=== PATIENT | male | born 1960 | race African-American/Black ===

== ENCOUNTER 2023-01-12 15:50 | Inpatient (IN) | payer OTHER ==
[2023-01-12 17:03] VITALS: BMI 27.3
[2023-01-12] MEDS ORDERED: BENZOCAINE/MENTHOL (CHLORASEPTIC ) LOZENGE MM PRN (18:18)
[2023-01-12] MEDS ORDERED: guaiFENesin 600 MG TABLET.ER (FP) PO PRN (18:18)
[2023-01-12] MEDS ORDERED: BISMUTH SUBSALICYLATE 524 MG/30 ML PO PRN (18:18)
[2023-01-12] MEDS ORDERED: NALOXONE HCL (KLOXXADO) 8 MG SPRAY NS PRN (18:18)
[2023-01-12] MEDS ORDERED: MAGNESIUM HYDROX 2400MG/30ML ORAL SUSPENSION 30 ML CUP PO PRN (18:18)
[2023-01-12] MEDS ORDERED: hydrOXYzine PAMOATE 25 MG CAPSULE (FP) PO PRN (18:18)
[2023-01-12] MEDS ORDERED: LOPERAMIDE HCL 2 MG CAPSULE PO PRN (18:18)
[2023-01-12] MEDS ORDERED: ONDANSETRON *ODT* 4 MG TABLET SL PRN (18:18)
[2023-01-12] MEDS ORDERED: NALOXONE HCL 0.4 MG/ML VIAL IM PRN (18:18)
[2023-01-12] MEDS ORDERED: IBUPROFEN 600 MG TABLET (FP) PO PRN (18:18)
[2023-01-12] MEDS ORDERED: METHOCARBAMOL 500 MG TABLET PO PRN (18:18)
[2023-01-12] MEDS ORDERED: MAG HYDROX/AL HYDROX/SIMETH 30 ML UNIT-DOSE CUP PO PRN (18:18)
[2023-01-12] MEDS ORDERED: BENZONATATE 200 MG CAPSULE PO PRN (18:18)
[2023-01-12] MEDS ORDERED: DICYCLOMINE HCL 10 MG CAPSULE PO PRN (18:18)
[2023-01-12] MEDS ORDERED: POLYETHYLENE GLYCOL (HEALTHYLAX) 3350 17 GM PACKET PO PRN (18:18)
[2023-01-12] MEDS ORDERED: P-EPHED 60MG/TRIPROLIDI 2.5MG TABLET PO PRN (18:18)
[2023-01-12] MEDS ORDERED: IBUPROFEN 400 MG TABLET (FP) PO PRN (18:18)
[2023-01-12] MEDS ORDERED: ACETAMINOPHEN 325 MG TABLET (FP) PO PRN (18:18)
[2023-01-12] MEDS ORDERED: TUBERCULIN PPD 5 TU/0.1ML VIAL ID ONE (19:22)
[2023-01-12] MEDS: THIAMINE HCL 100 MG TABLET (FP) PO SCH (22:09)
[2023-01-12] MEDS: DIVALPROEX SODIUM 500 MG TABLET E.C. PO SCH (22:09)
[2023-01-12] MEDS: BACITRACIN 0.9 GM PACKET TP SCH (22:09)
[2023-01-12] MEDS: MELATONIN 5 MG TABLETS PO PRN (22:09)
[2023-01-12] MEDS: CLINDAMYCIN HCL 150 MG CAPSULE (FP) PO SCH (23:23)
[2023-01-13] MEDS: CLINDAMYCIN HCL 150 MG CAPSULE (FP) PO SCH ×3 (05:44→17:38)
[2023-01-13] MEDS ORDERED: cloNIDine HCL 0.1 MG TABLET PO PRN (08:42)
[2023-01-13] MEDS ORDERED: methaDONE HCL 10 MG TABLET (FOR DETOX USE ONLY) PO ONE ×2 (08:42→10:00)
[2023-01-13] MEDS ORDERED: diazePAM 5 MG TABLET PO PRN (08:44)
[2023-01-13] MEDS: TAMSULOSIN HCL 0.4 MG CAP PO SCH (08:53)
[2023-01-13] MEDS: BACITRACIN 0.9 GM PACKET TP SCH ×2 (10:19→22:38)
[2023-01-13] MEDS: NIFEdipine E.R. 30 MG TABLET PO SCH (10:19)
[2023-01-13] MEDS: LOSARTAN POTASSIUM 50 MG TABLET PO SCH (10:20)
[2023-01-13] MEDS: DIVALPROEX SODIUM 500 MG TABLET E.C. PO SCH ×2 (10:20→22:39)
[2023-01-13] MEDS: PRENATAL VITAMINS W/ FOLIC ACID TABLET (FP) PO SCH (10:23)
[2023-01-13 12:55] LABS: POTASSIUM 5.2 mmol/L (3.5-5.1)
[2023-01-13 13:02] LABS: ALBUMIN 2.4 g/dl (3.4-5.0)
[2023-01-13 13:03] LABS: BLOOD UREA NITROGEN 34.8 mg/dL (7-18)
[2023-01-13 13:04] LABS: CREATININE 2.1 mg/dL (0.55-1.3)
[2023-01-13 13:06] LABS: BILIRUBIN,TOTAL 0.2 mg/dL (0.2-1)
[2023-01-13 13:15] LABS: HEMATOCRIT 27.4 % (35.4-49); HEMOGLOBIN 9.4 GM/dL (11.7-16.9); MCH 30.7 pg (25.7-33.7); MCHC 34.3 g/dl (32.0-35.9); MEAN CELL VOLUME 89.5 fl (80-96); PLATELET COUNT 193 10^3/uL (134-434); RBC 3.06 M/mm3 (4.00-5.60); RDW 13.1 % (11.9-15.9); WHITE BLOOD COUNT 4.7 K/mm3 (4.0-10.0)
[2023-01-13] MEDS ORDERED: traZODone HCL 50 MG TABLET (FP) PO SCH (22:00)
[2023-01-13] MEDS: MELATONIN 5 MG TABLETS PO PRN (22:39)
[2023-01-13] MEDS: THIAMINE HCL 100 MG TABLET (FP) PO SCH (22:39)
[2023-01-14] MEDS: CLINDAMYCIN HCL 150 MG CAPSULE (FP) PO SCH ×3 (00:06→12:31)
[2023-01-14] MEDS: LOSARTAN POTASSIUM 50 MG TABLET PO SCH (09:11)
[2023-01-14] MEDS: TAMSULOSIN HCL 0.4 MG CAP PO SCH (09:11)
[2023-01-14] MEDS: NIFEdipine E.R. 30 MG TABLET PO SCH (09:11)
[2023-01-14] MEDS: DIVALPROEX SODIUM 500 MG TABLET E.C. PO SCH (09:11)
[2023-01-14] MEDS: BACITRACIN 0.9 GM PACKET TP SCH (09:11)
[2023-01-14] MEDS: PRENATAL VITAMINS W/ FOLIC ACID TABLET (FP) PO SCH (09:12)
[2023-01-14 11:04] LABS: POTASSIUM 5.6 mmol/L (3.5-5.1)
[2023-01-14 11:08] LABS: HEMATOCRIT 31.6 % (35.4-49); HEMOGLOBIN 10.9 GM/dL (11.7-16.9); MCH 30.2 pg (25.7-33.7); MCHC 34.4 g/dl (32.0-35.9); MEAN CELL VOLUME 87.7 fl (80-96); MEAN PLT VOLUME 8.1 fl (7.5-11.1); PLATELET COUNT 241 10^3/uL (134-434); WHITE BLOOD COUNT 6.4 K/mm3 (4.0-10.0)
[2023-01-14 11:11] LABS: ALBUMIN 2.7 g/dl (3.4-5.0); BLOOD UREA NITROGEN 31.6 mg/dL (7-18); CALCIUM 8.8 mg/dL (8.5-10.1); MAGNESIUM 2.3 mg/dL (1.8-2.4)
[2023-01-14 11:14] LABS: CREATININE 1.7 mg/dL (0.55-1.3)
[2023-01-14] MEDS ORDERED: SODIUM ZIRCONIUM CYCLOSILICATE (LOKELMA) 10 GM PACKET PO SCH (11:15)
[2023-01-14 11:16] LABS: BILIRUBIN,TOTAL 0.7 mg/dL (0.2-1); TOT PROT 6.8 g/dl (6.4-8.2)
[2023-01-14 13:06] VITALS: BP 145/106; PULSE 79; RESP 16; TEMP 97.3
[2023-01-14] MEDS ORDERED: hydrALAZINE HCL 10 MG TABLET PO SCH (14:00)
[2023-01-15] MEDS ORDERED: NIFEdipine E.R. 90 MG TABLET PO SCH (10:00)
[2023-01-15] MEDS ORDERED: LOSARTAN POTASSIUM 50 MG TABLET PO SCH (10:00)
[2023-01-15] MEDS ORDERED: methaDONE HCL 10 MG TABLET (FOR DETOX USE ONLY) PO ONE (10:00)
[2023-01-17] MEDS ORDERED: methaDONE HCL 10 MG TABLET (FOR DETOX USE ONLY) PO ONE (10:00)
== END 2023-01-14 14:19 | disposition left against medical advice (07) | DRG 894 ==
LOC: YASAS 15:50 → Y3N 18:53
PROVIDERS: ADMIT Allergy & Immunology; ATTEND Surgery
PROC: HZ2ZZZZ Detoxification Services for Substance Abuse Treatment (ICD-10-PCS; principal; 2023-01-12)
DX: F11.23 Opioid dependence with withdrawal (principal); F13.20 Sedative, hypnotic or anxiolytic dependence, uncomplicated; F19.282 Other psychoactive substance dependence with psychoactive substance-induced sleep disorder; F17.210 Nicotine dependence, cigarettes, uncomplicated; F31.9 Bipolar disorder, unspecified; E87.5 Hyperkalemia; I10 Essential (primary) hypertension; N40.0 Benign prostatic hyperplasia without lower urinary tract symptoms; L08.89 Other specified local infections of the skin and subcutaneous tissue
CPT/HCPCS: 36415; 71045-TC-FY; 80053; 80164; 83735; 84100; 85027; 86780; C9803-CS; U0003; U0005